=== PATIENT | female | born 1965 | race African-American/Black ===

== ENCOUNTER → 2021-07-12 | Day surgery (SDC) | payer OTHER ==
[~2021-07-12] VITALS: Ht 160 cm; Wt 92.2 kg
[~2021-07-12] MED LIST: IV RINGERS,LACTATED 1000ML 1,000 ML IV SCH; LOSA-73 PO; PROPOFOL 10 MG/ML (20ML) VIAL. IV ONE; fentaNYL PF VIAL 100 MCG/2 ML VIAL IVP PRN
[2021-07-12 08:16] VITALS: BP 161/78
--- NOTE | 2021-07-12 09:06 | PDOC2 ---
CONSULT Date of Consult Date of Consult DATE: 07/12/21 TIME: 09:02 Reason for Consult Reason for Consult: CRC screening with positive family history of colon cancer History of Present Illness Reason for Visit: 55 year old Female is seen in consultation with above. She has daily bowel movements without diarrhea or constipation. Weight and appetite are stable. No melena and/or hematochezia is present. Family history is positive for colon cancer with an aunt. She otherwise is without additional complaints. Past Medical History Cardiovascular: HTN Past Surgical History Past Surgical History: Tubal Ligation, Hysterectomy Family History Family History: Cancer (aunt colon cancer) Social History No ALCOHOL: none Current Medications Current Medications Current Medications Fentanyl Citrate (Fentanyl 2ml Vial) 50 mcg PRN Q5MIN PRN IVP MODERATE PAIN 4- 6; Start 07/12/21 at 06:00; Stop 07/12/21 at 20:00 Ringer's Solution 1,000 ml @ 30 mls/hr Q24H IV Last administered on 07/12/21at 08:18; Start 07/12/21 at 06:00; Stop 07/12/21 at 17:59 Propofol (Diprivan) 200 mg STK-MED ONCE IV ; Start 07/12/21 at 09:00; Stop 07/12/21 at 09:01; Status DC Active Scripts Active Reported Losartan Potassium 50 Mg Tablet 50 Mg PO DAILY Allergies Allergies: Coded Allergies: No Known Drug Allergies (Unverified , 07/12/21) ROS Musculoskeletal: Yes Joint Stiffness Physical Exam General: Alert, Oriented X3 Lungs: Clear to auscultation Heart: Normal S1, Normal S2 Abdomen: Normal bowel sounds, Soft, No tenderness Vitals VITALS Vital Signs Date Time Temp Pulse Resp B/P (MAP) Pulse Ox O2 Delivery O2 Flow Rate FiO2 07/12/21 08:16 98.1 96 20 100 98.1 Assessment/Plan Assessment/Plan CRC screening- with positive family history of colon cancer, is recommended at this time.R/B discussed with patient who is willing to proceed. MARIE BHATT MD Jul 12, 2021 09:06
[2021-07-12 09:48] VITALS: BP 144/68
== END | disposition home or self-care (01) ==
LOC: ENDOS 07:53
PROVIDERS: ATTEND Internal Medicine Gastroenterology
DX: Z12.11 Encounter for screening for malignant neoplasm of colon (principal); K64.0 First degree hemorrhoids; K63.89 Other specified diseases of intestine; I10 Essential (primary) hypertension; G47.30 Sleep apnea, unspecified; Z90.710 Acquired absence of both cervix and uterus; Z98.51 Tubal ligation status; Z98.890 Other specified postprocedural states; Z79.899 Other long term (current) drug therapy; Z80.0 Family history of malignant neoplasm of digestive organs
CPT/HCPCS: 45378; J2704